=== PATIENT | female | born 1970 | race Caucasian/White ===

== ENCOUNTER 2016-11-13 12:47 | Inpatient (IN) | payer OTHER ==
[2016-11-13] MEDS ORDERED: SODIUM CHLORIDE 0.9% 1000ML 1,000 ML IV ONE ×2 (12:48→22:00)
[2016-11-13] MEDS: SODIUM CHLORIDE 0.9% FLUSH 10 ML SOL IV PRN (13:00)
[2016-11-13] MEDS: SODIUM CHLORIDE 0.9% 1000ML 1,000 ML IV SCH ×2 (15:43→20:48)
[2016-11-13 16:30] LABS: CALCIUM 15.1 mg/dl (8.5-10.1)
[2016-11-13] MEDS ORDERED: Non-Formulary Medication MISC (Saliva Substitute Combo No.9 [Biotene Dry Mouth Mouthwash PO PRN (17:38)
[2016-11-13] MEDS ORDERED: DIPHENHYDRAMINE 25 MG CAP PO PRN (17:38)
[2016-11-13] MEDS ORDERED: APAP/HYDROCODONE 325/5 TAB PO PRN (17:38)
[2016-11-13] MEDS ORDERED: DEXAMETHASONE 20 MG/5 ML (4 MG/ML SOL) IV ONE (17:58)
[2016-11-13] MEDS ORDERED: CITALOPRAM 20 MG TAB PO SCH (18:00)
[2016-11-13] MEDS ORDERED: BISACODYL 5 MG TAB ECT PO PRN (19:30)
[2016-11-13] MEDS: CITALOPRAM 20 MG TAB PO SCH (20:45)
[2016-11-13] MEDS: PROCHLORPERAZINE MALEATE 5 MG TAB PO SCH (20:45)
[2016-11-13] MEDS: ACETAMINOPHEN 500 MG 500 MG TAB PO PRN (23:49)
[2016-11-14] MEDS: SODIUM CHLORIDE 0.9% 1000ML 1,000 ML IV SCH ×3 (03:58→19:28)
[2016-11-14 07:18] LABS: ALBUMIN 2.4 gm/dl (3.4-5.0); CALCIUM 12.7 mg/dl (8.5-10.1); POTASSIUM 3.9 mMol/L (3.5-5.1)
[2016-11-14] MEDS: PROCHLORPERAZINE MALEATE 5 MG TAB PO SCH ×5 (07:40→22:21)
[2016-11-14] MEDS: ACETAMINOPHEN 500 MG 500 MG TAB PO PRN (09:09)
[2016-11-14] MEDS: LISINOPRIL 20 MG TAB PO SCH (09:09)
[2016-11-14] MEDS: CHOLECALCIFEROL 1,000 IU TAB PO SCH (09:09)
[2016-11-14] MEDS: LORATADINE 10 MG TAB PO SCH (09:09)
[2016-11-14] MEDS: CYANOCOBALAMIN 5000 MCG PO SCH (09:23)
[2016-11-14] MEDS ORDERED: WATER, STERILE 20 ML 20 ML ONE (12:42)
[2016-11-14] MEDS ORDERED: SODIUM CHLORIDE 0.9% IV SCH (13:00)
[2016-11-14] MEDS ORDERED: PAMIDRONATE DISODIUM IV SCH ×2 (13:00)
[2016-11-14] MEDS: VITAMIN K2 100 MG PO SCH (14:46)
[2016-11-14] MEDS: SULINDAC 200 MG PO SCH ×2 (16:28→18:22)
[2016-11-14 18:27] VITALS: RESP 16
[2016-11-14] MEDS: CITALOPRAM 20 MG TAB PO SCH (20:53)
[2016-11-15] MEDS: SODIUM CHLORIDE 0.9% 1000ML 1,000 ML IV SCH ×3 (00:29→10:45)
[2016-11-15 00:32] VITALS: O2SAT 95
[2016-11-15] MEDS: PROCHLORPERAZINE MALEATE 5 MG TAB PO SCH ×3 (02:48→13:16)
[2016-11-15 07:12] LABS: CALCIUM 12.4 mg/dl (8.5-10.1); POTASSIUM 3.9 mMol/L (3.5-5.1)
[2016-11-15 07:35] LABS: BASOPHILS % (AUTO) 1 % (0-3); EOSINOPHILS % (AUTO) 3 % (0-9); HEMATOCRIT 25 % (35-47); MEAN CORPUSCULAR HGB CONC 36.6 gm/dl (32.0-36.0); MONOCYTES % (AUTO) 5.6 % (0-12); NEUTROPHILS % (AUTO) 79.8 % (37-80)
[2016-11-15 07:41] LABS: MEAN CORPUSCULAR VOLUME 80 fL (81-99)
[2016-11-15] MEDS: LORAZEPAM 2 MG/ML SOL IV PRN ×2 (08:40→09:44)
[2016-11-15] MEDS: SODIUM CHLORIDE 0.9% FLUSH 10 ML SOL IV PRN (09:45)
[2016-11-15] MEDS: VITAMIN K2 100 MG PO SCH (10:26)
[2016-11-15] MEDS: SULINDAC 200 MG PO SCH (10:27)
[2016-11-15] MEDS: LORATADINE 10 MG TAB PO SCH (10:27)
[2016-11-15] MEDS: CYANOCOBALAMIN 5000 MCG PO SCH (10:28)
[2016-11-15] MEDS: CHOLECALCIFEROL 1,000 IU TAB PO SCH (10:28)
[2016-11-15] MEDS: LISINOPRIL 20 MG TAB PO SCH (10:29)
[2016-11-15 11:08] VITALS: BP 179/105; PULSE 94; TEMP 98.2
[2016-11-15] MEDS ORDERED: DEXAMETHASONE 20 MG/5 ML (4 MG/ML SOL) IV ONE (11:27)
== END 2016-11-15 12:40 | disposition short-term general hospital (02) | DRG 641 ==
LOC: ACUTE CARE 12:47
PROVIDERS: ADMIT Family Medicine; ATTEND Family Medicine
DX: E83.52 Hypercalcemia (principal); N17.9 Acute kidney failure, unspecified; C79.51 Secondary malignant neoplasm of bone; C50.919 Malignant neoplasm of unspecified site of unspecified female breast; R32 Unspecified urinary incontinence; R53.1 Weakness
CPT/HCPCS: 36415; 70551; 72148; 80048; 80053; 82310; 82565; 84132; 85025; 99070; J1100; J2060; Q0164; A4450; A6232; A6402

== ENCOUNTER 2017-01-24 13:49 | Emergency (ER) | payer OTHER ==
[2017-01-24 13:49] VITALS: O2SAT 96
[2017-01-24 14:17] VITALS: BP 141/96; PULSE 121; RESP 24; TEMP 98.1
[2017-01-24 15:57] LABS: BASOPHILS % (AUTO) 5 % (0-3); EOSINOPHILS % (AUTO) 0 % (0-9); HEMATOCRIT 34 % (35-47); MEAN CORPUSCULAR HGB CONC 32.1 gm/dl (32.0-36.0); MEAN CORPUSCULAR VOLUME 88 fL (81-99); MONOCYTES % (AUTO) 15.7 % (0-12); NEUTROPHILS % (AUTO) 67.8 % (37-80)
[2017-01-24 16:13] LABS: CALCIUM 8.2 mg/dl (8.5-10.1); POTASSIUM 3.8 mMol/L (3.5-5.1)
[2017-01-24 16:37] LABS: ANISOCYTOSIS SLIGHT AMT
== END 2017-01-24 18:26 | DRG 556 ==
LOC: ED 13:49
DX: M25.562 Pain in left knee (principal); C79.51 Secondary malignant neoplasm of bone; R74.0 Nonspecific elevation of levels of transaminase and lactic acid dehydrogenase [LDH]
CPT/HCPCS: 73560; 80053; 85025; 85610; 87040; 99283